=== PATIENT | female | born 1980 | race African-American/Black ===

== ENCOUNTER → 2018-03-22 | Day surgery (SDC) | payer OTHER ==
[~2018-03-22] VITALS: Ht 162.6 cm; Wt 63.5 kg
--- NOTE | 2018-03-22 11:52 | Operative Report ---
Operative/Inv Procedure Report Surgery Date: 03/22/18 Name of Procedure: EUA Operative hysteroscopy Myosure myomectomy Pre-Operative Diagnosis: Submucus myoma Abnormal Uterine bleeding Post-Operative Diagnosis: Same Estimated Blood Loss: less than 50ml Surgeon/Senior Medical Writer: Amauri Fisher MD Anesthesia: laryngeal mask airway Monitors: Per Anesthesiology IV Fluids: 600 Implants: NA Urine Output: 80 cc Drains: NA Specimens: Myoma to pathology Microbiology: NA Complications: None Condition: Stable to RR Operative Indication: 38 year old female with known fibroid uterus and AUB-L. Patient using Lysteda with relief of menorrhagia however noted submucus myoma on imaging. Consented for surgical resection of myoma to cease the AUB-L. Risks of procedure being pain, bleeding, infection, perforation of uterus. Patient understood treatment plan and accepted the risks for the benefit of control of the abnormal bleeding. All questions answered. Operative/Procedure Note Note: Patient taken to OR and prepped in usual sterile fashion. LMA was used for anesthesia. Time out completed prior to surgery No antibiotics indicated. Placed in dorsal lithotomy position and Alps applied Bladder drained of 80 cc clear urine Speculum placed in vagina and cervix grasped with single tooth tenaculum. 10 cc of lidocaine with epinephrine injected at 10,2, 5 and 7 oclock for control of local uterine bleeding. cervix serially dilated to amos 21. Myosure device placed into cervix and speculum removed. Using saline as distension medium the uterus was evaluated with the below findings. Myosure device extended and the myoma was resected without difficulty. it was sent to pathology. Procedure completed and no active bleeding. Device removed. Instrument and lap count correct x 2. Taken out of lithotomy position and extubated in OR in stable condition. Findings: Normal appearing vulva Normal appearing cervix Normal cervical canal Submucus myoma noted at fundus 1.8 cm Normal ostia seen Discharge Disposition: PACU Additional Comments: Reviewed surgical findings with patient and postoperative pain mgmt and postoperative expectations. Follow up 2 weeks.
== END ==
LOC: STS 01:31
DX: D25.0 Submucous leiomyoma of uterus (principal); N93.9 Abnormal uterine and vaginal bleeding, unspecified
CPT/HCPCS: 81025; J0131; J1885; J2250; J2405